=== PATIENT | male | born 1955 | race Caucasian/White ===

== ENCOUNTER 2020-06-04 12:49 | Outpatient (REF) | payer MEDICARE, SELFPAY ==
--- NOTE | 2020-06-04 12:58 | MM_ITS ---
EXAMINATION: BONE DENSITOMETRY CLINICAL INDICATION: Osteoporosis. COMPARISON: Baseline BD dated 06/03/2018. TECHNIQUE: Using a [employer] DXA System (software version: 13.1) manufactured by [employer], dual-energy x-ray absorptiometry was performed of the lumbar spine and left hip. The images are of good technical quality. Summary results are attached. FINDINGS: AP SPINE L1-L4: Current: BMD 0.947 g/cm2, Z-score -2.6, T-score -2.3, osteopenia, 7.0% increase from baseline (<5% change is not significant). Baseline: BMD 0.885 g/cm2. LEFT FEMUR, NECK: Current: BMD 0.794 g/cm2, Z-score -1.5, T-score -2.1, osteopenia. Baseline: BMD 0.751 g/cm2. LEFT FEMUR, TOTAL: Current: BMD 0.822 g/cm2, Z-score -1.9, T-score -1.9, osteopenia, 2.6% increase from baseline (<5% change is not significant). Baseline: BMD 0.801 g/cm2. IDENTIFIED RISK FACTORS: Chronic glucocorticoids. Renal disease. Secondary osteoporosis. Rheumatoid arthritis. HISTORY OF FRACTURE: None listed. MEDICATIONS: Calcium. Vitamin D. IMPRESSION: 1. DIAGNOSIS: Osteopenia based on the lowest T-score value of -2.3 in the lumbar spine applying World Health Organization criteria. 2. 10-YEAR FRACTURE RISK PREDICTION, FRAX: Major osteoporotic fracture (clinical spine, forearm, hip or shoulder) 14.6%. Hip fracture 3.7%. 3. Treatment Recommendations: NOF guidelines recommend consideration for treatment in postmenopausal women and men age 50 and older presenting with the following: -A hip or vertebral (clinical or morphometric) fracture. -T-score less than or equal to -2.5 at the femoral neck or spine after appropriate evaluation to exclude secondary causes. -Low bone mass at the hip or spine and a 10-year fracture probability by FRAX of greater than or equal to 3% for hip fracture or greater than or equal to 20% for major osteoporotic fracture based on the [place] adapted WHO algorithm. 4. Other Recommendations: All treatment decisions require clinical judgment and consideration of individual patient factors, including patient preferences, comorbidities, previous drug use, risk factors not captured in the FRAX model (e.g. frailty, falls, vitamin D deficiency, increased bone turnover, interval significant decline in bone density) and possible under or overestimation of fracture risk by FRAX. Additional medical evaluation for secondary cause of low bone mineral density may be appropriate. FUTURE SCAN RECOMMENDATION: People with diagnosed cases of osteoporosis or at high risk for fracture should have regular bone mineral density tests. For patients eligible for Medicare, routine testing is allowed once every 2 years. The testing frequency can be increased to one year for patients who have rapidly progressing disease, those who are receiving or discontinuing medical therapy to restore bone mass, or have additional risk factors.
== END 2020-06-04 12:50 | disposition home or self-care (01) ==
LOC: HO.MAMMO 12:49
PROVIDERS: PCP Internal Medicine; Visit Provider Student in an Organized Health Care Education/Training Program
DX: M81.0 Age-related osteoporosis without current pathological fracture (principal); E27.49 Other adrenocortical insufficiency; N28.9 Disorder of kidney and ureter, unspecified; M06.9 Rheumatoid arthritis, unspecified
CPT/HCPCS: 77080

== ENCOUNTER 2020-06-27 07:20 | Outpatient (REF) | payer MEDICARE, SELFPAY ==
[2020-06-27 08:06] LABS: MANUAL DIFF FLAG NO
[2020-06-27 08:11] LABS: Basophils Percent Auto 0.7 % (0-2); Eosinophils Absolute Auto 0.4 X10*3/uL (0.0-0.4); Eosinophils Percent Auto 6.4 % (0-4); Hematocrit 44.6 % (42-52); Hemoglobin 14.7 g/dl (14.0-18.0); Imm Gran Abs Auto 0.03 X10*3/uL (0.00-0.03); Imm Gran Pct Auto 0.5 % (0.0-0.4); Lymphocytes Absolute Auto 1.2 X10*3/uL (1.2-4.9); Lymphocytes Percent Auto 19.4 % (20-40); Mean Corpuscular Volume 94.1 fL (80-98); Mean Platelet Volume 9.8 fL (9.4-12.4); Monocytes Absolute Auto 0.5 X10*3/uL (0.1-1.2); Monocytes Percent Auto 8.2 % (2-11); Neutrophils Absolute Auto 3.9 X10*3/uL (2.0-8.3); Neutrophils Percent Auto 64.8 % (45-73); Platelet Count 243 X10*3/uL (160-400); Red Blood Count 4.74 X10*6/uL (4.60-5.80); White Blood Count 5.9 X10*3/uL (4.8-10.8)
[2020-06-27 08:23] LABS: Alanine Aminotransferase 65 U/L (0-40); Albumin Level 3.8 g/dL (3.5-5.0); Alkaline Phosphatase 37 U/L (39-117); Anion Gap 11 (12-20); Aspartate Amino Transferase 51 U/L (5-37); Bilirubin Total 0.6 mg/dL (0.0-1.0); Blood Urea Nitrogen 21 mg/dL (9-16); C Reactive Protein 1.18 mg/dL (< or = 0.50); Calcium 8.9 mg/dL (8.4-10.2); Carbon Dioxide 30 mmol/L (22-29); Chloride 103 mmol/L (96-108); Estimated Glomerular Filt Rate > 60; Glucose Random 120 mg/dL (60-115); Potassium 4.1 mmol/l (3.3-5.1); Sodium 140 mmol/L (135-145); Total Protein 6.9 g/dL (6.5-8.0)
[2020-06-27 09:04] LABS: Erythrocyte Sedimentation Rate 7 MM/HR (0-15)
== END 2020-06-27 07:21 | disposition home or self-care (01) ==
LOC: HO.LAB 07:20
PROVIDERS: PCP Internal Medicine; Visit Provider Student in an Organized Health Care Education/Training Program
DX: M05.9 Rheumatoid arthritis with rheumatoid factor, unspecified (principal); M81.0 Age-related osteoporosis without current pathological fracture; R76.8 Other specified abnormal immunological findings in serum; R80.9 Proteinuria, unspecified
CPT/HCPCS: 36415; 80053; 85025; 85652; 86140

== ENCOUNTER → 2020-07-04 07:43 | Outpatient (BNVA) | payer MEDICARE, SELFPAY | PROVIDERS: PCP Internal Medicine; Referring Provider Internal Medicine; Visit Provider Student in an Organized Health Care Education/Training Program | DX: M05.9 Rheumatoid arthritis with rheumatoid factor, unspecified (principal); M81.0 Age-related osteoporosis without current pathological fracture; R76.8 Other specified abnormal immunological findings in serum; Z79.899 Other long term (current) drug therapy | CPT/HCPCS: 99212 ==

== ENCOUNTER 2020-09-21 08:19 | Outpatient (REF) | payer MEDICARE, SELFPAY ==
[2020-09-21 10:17] LABS: MANUAL DIFF FLAG NO
[2020-09-21 10:36] LABS: Basophils Absolute Auto 0.1 X10*3/uL (0.0-0.2); Basophils Percent Auto 0.7 % (0-2); Eosinophils Absolute Auto 0.5 X10*3/uL (0.0-0.4); Eosinophils Percent Auto 6.4 % (0-4); Hematocrit 46.3 % (42-52); Imm Gran Abs Auto 0.03 X10*3/uL (0.00-0.03); Imm Gran Pct Auto 0.4 % (0.0-0.4); Lymphocytes Absolute Auto 1.5 X10*3/uL (1.2-4.9); Lymphocytes Percent Auto 20.6 % (20-40); Mean Corpuscular HGB Conc 32.4 g/dl (31.0-36.0); Mean Corpuscular Hemoglobin 30.2 pg (27.0-33.0); Mean Corpuscular Volume 93.3 fL (80-98); Mean Platelet Volume 9.9 fL (9.4-12.4); Monocytes Absolute Auto 0.7 X10*3/uL (0.1-1.2); Monocytes Percent Auto 10.1 % (2-11); Neutrophils Absolute Auto 4.4 X10*3/uL (2.0-8.3); Neutrophils Percent Auto 61.8 % (45-73); Platelet Count 266 X10*3/uL (160-400); Red Blood Count 4.96 X10*6/uL (4.60-5.80)
[2020-09-21 10:53] LABS: Alanine Aminotransferase 84 U/L (0-40); Albumin Level 3.9 g/dL (3.5-5.0); Alkaline Phosphatase 40 U/L (39-117); Anion Gap 10 (12-20); Aspartate Amino Transferase 78 U/L (5-37); Bilirubin Total 0.6 mg/dL (0.0-1.0); Blood Urea Nitrogen 17 mg/dL (9-16); C Reactive Protein 2.15 mg/dL (< or = 0.50); Calcium 9.2 mg/dL (8.4-10.2); Carbon Dioxide 29 mmol/L (22-29); Chloride 105 mmol/L (96-108); Estimated Glomerular Filt Rate > 60; Glucose Random 103 mg/dL (60-115); Potassium 4.4 mmol/l (3.3-5.1); Sodium 140 mmol/L (135-145); Total Protein 7.1 g/dL (6.5-8.0)
[2020-09-21 11:10] LABS: Alanine Aminotransferase 85 U/L (0-40); Albumin Level 3.9 g/dL (3.5-5.0); Alkaline Phosphatase 40 U/L (39-117); Anion Gap 13 (12-20); Aspartate Amino Transferase 78 U/L (5-37); Bilirubin Total 0.5 mg/dL (0.0-1.0); Blood Urea Nitrogen 18 mg/dL (9-16); C Reactive Protein 2.23 mg/dL (< or = 0.50); Calcium 9.2 mg/dL (8.4-10.2); Carbon Dioxide 28 mmol/L (22-29); Chloride 105 mmol/L (96-108); Estimated Glomerular Filt Rate > 60; Glucose Random 102 mg/dL (60-115); Potassium 4.3 mmol/l (3.3-5.1); Sodium 142 mmol/L (135-145); Total Protein 7.3 g/dL (6.5-8.0)
[2020-09-21 11:22] LABS: Erythrocyte Sedimentation Rate 17 MM/HR (0-15)
[2020-09-23 23:52] LABS: Transglutaminase Ab IgG 8 U/mL; Transglutaminase IgA 1 U/mL
[2020-09-24 12:27] LABS: Alpha Fetoprotein 3.6 ng/mL (<6.1)
== END 2020-09-21 08:20 | disposition home or self-care (01) ==
LOC: HO.LAB 08:19
PROVIDERS: Absent Provider Student in an Organized Health Care Education/Training Program; PCP Internal Medicine; Visit Provider Nurse Practitioner
DX: M05.9 Rheumatoid arthritis with rheumatoid factor, unspecified (principal); M81.0 Age-related osteoporosis without current pathological fracture; K75.81 Nonalcoholic steatohepatitis (NASH); R19.7 Diarrhea, unspecified; Z88.0 Allergy status to penicillin; Z88.8 Allergy status to other drugs, medicaments and biological substances; Z79.899 Other long term (current) drug therapy
CPT/HCPCS: 36415; 80053; 82105; 83516; 85025; 85652; 86140; 99212

== ENCOUNTER → 2020-10-04 07:47 | Outpatient (BNVA) | payer MEDICARE, SELFPAY | PROVIDERS: PCP Internal Medicine; Referring Provider Internal Medicine; Visit Provider Student in an Organized Health Care Education/Training Program | DX: M05.9 Rheumatoid arthritis with rheumatoid factor, unspecified (principal); M81.0 Age-related osteoporosis without current pathological fracture; R76.8 Other specified abnormal immunological findings in serum; Z79.899 Other long term (current) drug therapy | CPT/HCPCS: 99212 ==

== ENCOUNTER → 2020-10-08 08:49 | Outpatient (BNVA) | payer MEDICARE, SELFPAY | PROVIDERS: PCP Internal Medicine; Visit Provider Nurse Practitioner | DX: Z13.89 Encounter for screening for other disorder (principal) | CPT/HCPCS: Q3014 ==

== ENCOUNTER 2020-10-22 15:46 | Outpatient (REF) | payer MEDICARE, SELFPAY ==
--- NOTE | ~2020-10-22 | XR_ITS ---
EXAMINATION: PRE-MRI CLINICAL INFORMATION: Check for metal in eye pre-MRI COMPARISON: None TECHNIQUE: 3 views of the orbits FINDINGS: No radiopaque soft tissue foreign body about the orbits is seen. Visualized bony structures are normal. There may be membranous soft tissue thickening in the floor of the right maxillary sinus. XR/XR pre mri screening IMPRESSION: No radiopaque foreign body seen about the orbits.
--- NOTE | ~2020-10-22 | MR_ITS ---
EXAMINATION: MR BRAIN WITHOUT AND WITH CONTRAST CLINICAL INFORMATION: 65-year-old with left-sided hearing loss, tinnitus and dizziness. COMPARISON: None TECHNIQUE: Multiplanar, multisequence MRI of the brain was obtained before and after the intravenous administration of 10 mL Gadavist. FINDINGS: IACs: Bilaterally symmetric, no mass lesions or abnormal enhancement. CN VII-VIII complexes normal. AICA Loops:?Type I on right. Membranous Labyrinths: Normal; no abnormal enhancement. CP Angle Cisterns: No mass lesions or abnormal enhancement. Brain Volume: Normal for age. Brain and Meninges: The brain is normal in morphology. There are scattered small non-enhancing T2 hyperintensities in the subcortical and deeper white matter of both cerebral hemispheres, which are nonspecific findings but likely reflect minimal foci of chronic microvascular ischemic white matter changes. DWI imaging demonstrates no restricted diffusion. Specifically, there is no evidence for recent or acute ischemic event. Gradient echo imaging demonstrates no evidence for hemorrhage or hemosiderin staining. Postcontrast whole brain imaging demonstrates no evidence for mass lesion, abnormal enhancement, space-occupying process or mass effect. The cavernous sinuses enhance normally and there is a normal appearance to Meckel's caves. Vessels: Signal voids are noted in the visualized major intracranial vessels. Ventricles and Subarachnoid Spaces: The ventricular system and subarachnoid spaces are within normal limits in appearance. There is no hydrocephalus. Bony Structures: Bony structures appear intact. There is probable retention cyst formation along the floor of the right maxillary sinus with mucosal thickening in both maxillary sinuses and ethmoid complex, with nasal septal deviation to the right. Small retention cyst, right sphenoid sinus. MR/MR head/brain wo/w con IMPRESSION: 1. Normal appearance to the auditory apparatus, with a normal appearance to the IACs and CP angle cisterns. No mass lesions or abnormal enhancement are identified. 2. Scattered probable mild chronic microvascular ischemic white matter changes in both cerebral hemispheres. No mass lesions, abnormal enhancement, space-occupying process or mass effect. 3. Sinonasal findings as discussed above.
== END 2020-10-22 15:47 | disposition home or self-care (01) ==
LOC: HO.MRI 15:46
PROVIDERS: Visit Provider Otolaryngology
DX: H90.3 Sensorineural hearing loss, bilateral (principal); D33.3 Benign neoplasm of cranial nerves
CPT/HCPCS: 70553; A9585

== ENCOUNTER → 2020-10-23 08:54 | Outpatient (BNVA) | payer MEDICARE, SELFPAY | PROVIDERS: PCP Internal Medicine; Visit Provider Nurse Practitioner | CPT/HCPCS: Q3014 ==

== ENCOUNTER 2020-10-31 10:02 | Outpatient (REF) | payer MEDICARE, SELFPAY ==
--- NOTE | ~2020-10-31 | US_ITS ---
EXAMINATION: US ABDOMEN COMPLETE CLINICAL INFORMATION: Nonalcoholic steatohepatitis. COMPARISON: Ultrasound abdomen complete 10/13/2019 and 04/14/2019. TECHNIQUE: Real-time imaging of the abdominal viscera. FINDINGS: PANCREAS: Most of the pancreas is obscured by overlying gas. ABDOMINAL AORTA: The proximal, mid, and distal segments are normal in caliber. INFERIOR VENA CAVA: Visualized portions are normal. LIVER: The liver is normal in size. The liver contour is normal. There is increased liver echogenicity. No focal hepatic lesion. There is no intrahepatic biliary duct dilatation seen. GALLBLADDER: Surgically absent. COMMON BILE DUCT: Normal in caliber measuring 0.5 cm in diameter. RIGHT KIDNEY: There is an echogenic stone in the midpole measuring 1.0 x 0.6 x 0.9 cm. No hydronephrosis or focal parenchymal lesions. The kidney measures 11.7 cm in maximum dimension. LEFT KIDNEY: There is an echogenic stone upper pole measuring 0.8 x 0.5 x 0.7 cm and an echogenic stone lower pole measuring 0.5 x 0.4 x 0.5 cm. No caliectasis or hydronephrosis seen. There is an anechoic cyst in midpole measuring 0.8 x 0.6 x 0.8 cm. No hydronephrosis or renal calculi. The kidney measures 13.6 cm in maximum dimension. SPLEEN: Normal. The spleen measures 12.7 cm in maximum dimension. FREE FLUID: None US/US abdomen complete IMPRESSION: Bilateral echogenic renal calculi without hydronephrosis. There is a midpole left renal cyst measuring 0.8 x 0.6 x 0.8 cm. Mild hepatic steatosis. No focal liver lesions seen. Most of the pancreas is obscured by the overlying gas. The rest of the abdominal ultrasound is unremarkable.
== END 2020-10-31 10:03 | disposition home or self-care (01) ==
LOC: HO.US 10:02
PROVIDERS: Visit Provider Nurse Practitioner
DX: K75.81 Nonalcoholic steatohepatitis (NASH) (principal)
CPT/HCPCS: 76700

== ENCOUNTER 2020-12-31 06:22 | Outpatient (REF) | payer MEDICARE, SELFPAY ==
[2020-12-31 08:08] LABS: MANUAL DIFF FLAG NO
[2020-12-31 08:24] LABS: Basophils Absolute Auto 0.1 X10*3/uL (0.0-0.2); Basophils Percent Auto 0.8 % (0-2); Eosinophils Absolute Auto 0.5 X10*3/uL (0.0-0.4); Hematocrit 46.4 % (42-52); Hemoglobin 15.2 g/dl (14.0-18.0); Imm Gran Abs Auto 0.03 X10*3/uL (0.00-0.03); Imm Gran Pct Auto 0.4 % (0.0-0.4); Lymphocytes Absolute Auto 1.6 X10*3/uL (1.2-4.9); Lymphocytes Percent Auto 21.6 % (20-40); Mean Corpuscular HGB Conc 32.8 g/dl (31.0-36.0); Mean Corpuscular Hemoglobin 30.8 pg (27.0-33.0); Mean Corpuscular Volume 93.9 fL (80-98); Mean Platelet Volume 10.2 fL (9.4-12.4); Monocytes Absolute Auto 0.8 X10*3/uL (0.1-1.2); Monocytes Percent Auto 10.9 % (2-11); Neutrophils Absolute Auto 4.4 X10*3/uL (2.0-8.3); Neutrophils Percent Auto 59.3 % (45-73); Platelet Count 259 X10*3/uL (160-400); Red Blood Count 4.94 X10*6/uL (4.60-5.80); Red Cell Distribution Width 13.7 % (11.0-16.0); White Blood Count 7.3 X10*3/uL (4.8-10.8)
[2020-12-31 08:41] LABS: Alanine Aminotransferase 99 U/L (0-40); Albumin Level 3.8 g/dL (3.5-5.0); Alkaline Phosphatase 44 U/L (39-117); Anion Gap 12 (12-20); Aspartate Amino Transferase 88 U/L (5-37); Bilirubin Total 0.4 mg/dL (0.0-1.0); Blood Urea Nitrogen 14 mg/dL (9-16); C Reactive Protein 1.46 mg/dL (< or = 0.50); Calcium 9.4 mg/dL (8.4-10.2); Carbon Dioxide 29 mmol/L (22-29); Chloride 106 mmol/L (96-108); Estimated Glomerular Filt Rate > 60; Glucose Random 115 mg/dL (60-115); Potassium 4.3 mmol/L (3.3-5.1); Sodium 143 mmol/L (135-145); Total Protein 7.2 g/dL (6.5-8.0)
[2021-01-01 11:37] LABS: Alpha Fetoprotein 3.3 ng/mL (<6.1)
== END 2020-12-31 06:23 | disposition home or self-care (01) ==
LOC: HO.LAB 06:22
PROVIDERS: Nurse Practitioner; PCP Internal Medicine; Visit Provider Student in an Organized Health Care Education/Training Program
DX: K75.81 Nonalcoholic steatohepatitis (NASH) (principal); M05.9 Rheumatoid arthritis with rheumatoid factor, unspecified
CPT/HCPCS: 36415; 80053; 82105; 85025; 86140

== ENCOUNTER → 2021-01-09 09:47 | Outpatient (BNVA) | payer MEDICARE, SELFPAY | PROVIDERS: PCP Internal Medicine; Visit Provider Student in an Organized Health Care Education/Training Program | DX: M05.9 Rheumatoid arthritis with rheumatoid factor, unspecified (principal); M81.0 Age-related osteoporosis without current pathological fracture; R76.8 Other specified abnormal immunological findings in serum | CPT/HCPCS: 20610; 99212 ==

== ENCOUNTER 2021-04-08 06:56 | Outpatient (REF) | payer MEDICARE, SELFPAY ==
[2021-04-08 07:20] LABS: MANUAL DIFF FLAG NO
[2021-04-08 07:28] LABS: Basophils Absolute Auto 0.1 X10*3/uL (0.0-0.2); Basophils Percent Auto 1.2 % (0-2); Eosinophils Absolute Auto 0.6 X10*3/uL (0.0-0.4); Hematocrit 46.3 % (42-52); Hemoglobin 15.2 g/dl (14.0-18.0); Imm Gran Abs Auto 0.04 X10*3/uL (0.00-0.03); Imm Gran Pct Auto 0.6 % (0.0-0.4); Lymphocytes Absolute Auto 1.3 X10*3/uL (1.2-4.9); Lymphocytes Percent Auto 19.4 % (20-40); Mean Corpuscular HGB Conc 32.8 g/dl (31.0-36.0); Mean Corpuscular Hemoglobin 30.6 pg (27.0-33.0); Mean Corpuscular Volume 93.3 fL (80-98); Mean Platelet Volume 9.6 fL (9.4-12.4); Monocytes Absolute Auto 0.8 X10*3/uL (0.1-1.2); Neutrophils Absolute Auto 4.1 X10*3/uL (2.0-8.3); Neutrophils Percent Auto 59.8 % (45-73); Platelet Count 253 X10*3/uL (160-400); Red Blood Count 4.96 X10*6/uL (4.60-5.80); Red Cell Distribution Width 12.8 % (11.0-16.0); White Blood Count 6.8 X10*3/uL (4.8-10.8)
[2021-04-08 07:48] LABS: Alanine Aminotransferase 88 U/L (0-40); Albumin Level 3.8 g/dL (3.5-5.0); Alkaline Phosphatase 45 U/L (39-117); Anion Gap 13 (12-20); Aspartate Amino Transferase 68 U/L (5-37); Bilirubin Total 0.6 mg/dL (0.0-1.0); Blood Urea Nitrogen 15 mg/dL (9-16); C Reactive Protein 2.24 mg/dL (< or = 0.50); Calcium 9.2 mg/dL (8.4-10.2); Carbon Dioxide 29 mmol/L (22-29); Chloride 107 mmol/L (96-108); Estimated Glomerular Filt Rate > 60; Glucose Random 126 mg/dL (60-115); Potassium 3.9 mmol/L (3.3-5.1); Sodium 145 mmol/L (135-145); Total Protein 7.2 g/dL (6.5-8.0)
[2021-04-08 08:13] LABS: Erythrocyte Sedimentation Rate 16 MM/HR (0-15)
== END 2021-04-08 06:57 | disposition home or self-care (01) ==
LOC: HO.LAB 06:56
PROVIDERS: Absent Provider Nurse Practitioner; PCP Internal Medicine; Visit Provider Student in an Organized Health Care Education/Training Program
DX: M05.9 Rheumatoid arthritis with rheumatoid factor, unspecified (principal); R19.7 Diarrhea, unspecified; K75.81 Nonalcoholic steatohepatitis (NASH)
CPT/HCPCS: 36415; 80053; 85025; 85652; 86140

== ENCOUNTER → 2021-04-18 07:43 | Outpatient (BNVA) | payer MEDICARE, SELFPAY | PROVIDERS: PCP Internal Medicine; Visit Provider Student in an Organized Health Care Education/Training Program | DX: M05.9 Rheumatoid arthritis with rheumatoid factor, unspecified (principal); M81.0 Age-related osteoporosis without current pathological fracture; R76.8 Other specified abnormal immunological findings in serum; Z88.0 Allergy status to penicillin; Z88.8 Allergy status to other drugs, medicaments and biological substances; Z79.82 Long term (current) use of aspirin; Z79.52 Long term (current) use of systemic steroids; Z79.899 Other long term (current) drug therapy | CPT/HCPCS: 20610; 99212 ==

== ENCOUNTER → 2021-04-23 09:08 | Outpatient (BNVA) | payer MEDICARE, SELFPAY | PROVIDERS: PCP Internal Medicine; Visit Provider Nurse Practitioner | DX: Z13.89 Encounter for screening for other disorder (principal) | CPT/HCPCS: Q3014 ==

== ENCOUNTER 2021-11-07 11:48 | Outpatient (REF) | payer MEDICARE, SELFPAY ==
[2021-11-07 12:36] LABS: MANUAL DIFF FLAG NO
[2021-11-07 13:30] LABS: Basophils Absolute Auto 0.1 X10*3/uL (0.0-0.2); Basophils Percent Auto 0.6 % (0-2); Eosinophils Absolute Auto 0.4 X10*3/uL (0.0-0.4); Eosinophils Percent Auto 5.3 % (0-4); Hematocrit 45.1 % (42.0-52.0); Hemoglobin 14.6 g/dl (14.0-18.0); Imm Gran Abs Auto 0.03 X10*3/uL (0.00-0.03); Imm Gran Pct Auto 0.4 % (0.0-0.4); Lymphocytes Absolute Auto 1.4 X10*3/uL (1.2-4.9); Lymphocytes Percent Auto 17.4 % (20-40); Mean Corpuscular HGB Conc 32.4 g/dl (31.0-36.0); Mean Corpuscular Hemoglobin 30.5 pg (27.0-33.0); Mean Corpuscular Volume 94.2 fL (80.0-98.0); Mean Platelet Volume 9.7 fL (9.4-12.4); Monocytes Absolute Auto 0.7 X10*3/uL (0.1-1.2); Monocytes Percent Auto 8.2 % (2-11); Neutrophils Absolute Auto 5.5 x10*3/uL (2.0-8.3); Neutrophils Percent Auto 68.1 % (45-73); Platelet Count 255 X10*3/uL (160-400); Red Blood Count 4.79 X10*6/uL (4.60-5.80); Red Cell Distribution Width 13.6 % (11.0-16.0)
[2021-11-07 13:52] LABS: Alanine Aminotransferase 89 U/L (0-40); Albumin Level 3.8 g/dL (3.5-5.0); Alkaline Phosphatase 47 U/L (39-117); Anion Gap 11 (12-20); Aspartate Amino Transferase 80 U/L (5-37); Bilirubin Direct 0.3 mg/dL (0.0-0.5); Bilirubin Total 0.8 mg/dL (0.0-1.0); Blood Urea Nitrogen 22 mg/dL (9-16); Calcium 9.7 mg/dL (8.4-10.2); Carbon Dioxide 30 mmol/L (22-29); Chloride 104 mmol/L (96-108); Estimated Glomerular Filt Rate > 60; Glucose Random 86 mg/dL (60-115); Potassium 4.4 mmol/L (3.3-5.1); Sodium 141 mmol/L (135-145); Total Protein 7.3 g/dL (6.5-8.0)
[2021-11-07 15:02] LABS: Erythrocyte Sedimentation Rate 14 MM/HR (0-15)
[2021-11-11 13:21] LABS: Alpha Fetoprotein 3.3 ng/mL (<6.1)
== END 2021-11-07 11:49 | disposition home or self-care (01) ==
LOC: HO.LAB 11:48
PROVIDERS: Student in an Organized Health Care Education/Training Program; PCP Internal Medicine; Referring Provider Internal Medicine; Visit Provider Nurse Practitioner
DX: M05.9 Rheumatoid arthritis with rheumatoid factor, unspecified (principal); K75.81 Nonalcoholic steatohepatitis (NASH); K90.0 Celiac disease; M81.0 Age-related osteoporosis without current pathological fracture; Z90.49 Acquired absence of other specified parts of digestive tract; Z88.0 Allergy status to penicillin; Z88.8 Allergy status to other drugs, medicaments and biological substances
CPT/HCPCS: 36415; 80053; 82105; 82248; 85025; 85652; 86140; 99212

== ENCOUNTER 2022-05-22 08:20 | Outpatient (REF) | payer MEDICARE, SELFPAY ==
[2022-05-22 09:11] LABS: Alanine Aminotransferase 66 U/L (0-40); Albumin Level 3.9 g/dL (3.5-5.0); Alkaline Phosphatase 37 U/L (39-117); Aspartate Amino Transferase 55 U/L (5-37); Bilirubin Direct 0.3 mg/dL (0.0-0.5); Bilirubin Total 0.8 mg/dL (0.0-1.0); Total Protein 7.4 g/dL (6.5-8.0)
[2022-05-26 13:53] LABS: Alpha Fetoprotein 2.5 ng/mL (<6.1)
== END 2022-05-22 08:21 | disposition home or self-care (01) ==
LOC: HO.LAB 08:20
PROVIDERS: PCP Internal Medicine; Visit Provider Nurse Practitioner
DX: K90.0 Celiac disease (principal); K75.81 Nonalcoholic steatohepatitis (NASH)
CPT/HCPCS: 36415; 80076; 82105; 99212

== ENCOUNTER 2022-07-09 07:43 | Outpatient (REF) | payer MEDICARE, SELFPAY ==
--- NOTE | ~2022-07-09 | US_ITS ---
EXAMINATION: US ABDOMEN LIMITED CLINICAL INFORMATION: Nonalcoholic steatohepatitis. COMPARISON: Ultrasound abdomen complete 10/31/2020 and 10/13/2019. TECHNIQUE: Real-time imaging of the right upper quadrant abdominal viscera. FINDINGS: PANCREAS: Normal. LIVER: The liver is normal in size. The liver contour is normal. There is a diffuse heterogeneous liver. No focal hepatic lesion. There is no intrahepatic biliary duct dilatation seen. GALLBLADDER: Surgically absent. COMMON BILE DUCT: Normal in caliber measuring 0.3 cm in diameter. RIGHT KIDNEY: There is an echogenic stone in the mid pole measuring 1.6 x 1.8 x 1.0 cm. No hydronephrosis. The kidney measures 12.5 cm in maximum dimension. There is a hypoechoic area along the mid pole cortex measuring 1.2 x 0.7 x 1.4 cm. FREE FLUID: None. US/US abdomen limited IMPRESSION: 1. Heterogeneous liver without focal lesion. No change from the previous study. 2. Nonobstructive echogenic stone mid pole right kidney. 3. Hypoechoic area mid pole cortex right kidney. Question mass versus lobulation. 4. The gallbladder has been surgically removed.
== END 2022-07-09 07:44 | disposition home or self-care (01) ==
LOC: HO.US 07:43
PROVIDERS: Visit Provider Nurse Practitioner
DX: K75.81 Nonalcoholic steatohepatitis (NASH) (principal)
CPT/HCPCS: 76705

== ENCOUNTER 2022-11-19 07:55 | Outpatient (REF) | payer MEDICARE, SELFPAY ==
[2022-11-19 08:42] LABS: MANUAL DIFF FLAG NO
[2022-11-19 09:35] LABS: Basophils Absolute Auto 0.1 X10*3/uL (0.0-0.2); Basophils Percent Auto 0.7 % (0-2); Eosinophils Absolute Auto 0.4 X10*3/uL (0.0-0.4); Hematocrit 46.5 % (42.0-52.0); Hemoglobin 15.2 g/dl (14.0-18.0); Imm Gran Abs Auto 0.05 X10*3/uL (0.00-0.03); Imm Gran Pct Auto 0.7 % (0.0-0.4); Lymphocytes Absolute Auto 1.2 X10*3/uL (1.2-4.9); Lymphocytes Percent Auto 16.7 % (20-40); Mean Corpuscular HGB Conc 32.7 g/dl (31.0-36.0); Mean Corpuscular Hemoglobin 29.7 pg (27.0-33.0); Mean Corpuscular Volume 90.8 fL (80.0-98.0); Mean Platelet Volume 9.8 fL (9.4-12.4); Monocytes Absolute Auto 0.6 X10*3/uL (0.1-1.2); Neutrophils Absolute Auto 4.8 x10*3/uL (2.0-8.3); Neutrophils Percent Auto 66.9 % (45-73); Platelet Count 274 X10*3/uL (160-400); Red Blood Count 5.12 X10*6/uL (4.60-5.80); Red Cell Distribution Width 13.5 % (11.0-16.0); White Blood Count 7.1 X10*3/uL (4.8-10.8)
[2022-11-19 09:53] LABS: Alanine Aminotransferase 86 U/L (0-40); Albumin Level 3.7 g/dL (3.5-5.0); Alkaline Phosphatase 41 U/L (39-117); Anion Gap 13 (12-20); Aspartate Amino Transferase 67 U/L (5-37); Bilirubin Total 0.7 mg/dL (0.0-1.0); Blood Urea Nitrogen 17 mg/dL (9-16); Calcium 9.5 mg/dL (8.4-10.2); Carbon Dioxide 29 mmol/L (22-29); Chloride 105 mmol/L (96-108); Estimated Glomerular Filt Rate > 60; Glucose Random 153 mg/dL (60-115); Potassium 4.4 mmol/L (3.3-5.1); Sodium 143 mmol/L (135-145); Total Protein 6.9 g/dL (6.5-8.0)
[2022-11-21 13:33] LABS: Alpha Fetoprotein 3.3 ng/mL (<6.1)
== END 2022-11-19 07:56 | disposition home or self-care (01) ==
LOC: HO.LAB 07:55
PROVIDERS: PCP Internal Medicine; Referring Provider Internal Medicine; Visit Provider Nurse Practitioner
DX: K75.81 Nonalcoholic steatohepatitis (NASH) (principal); R19.7 Diarrhea, unspecified; K90.0 Celiac disease; Z79.899 Other long term (current) drug therapy
CPT/HCPCS: 36415; 80053; 82105; 85025; 99212

== ENCOUNTER 2022-12-10 08:15 | Outpatient (REF) | payer MEDICARE, SELFPAY ==
--- NOTE | ~2022-12-10 | US_ITS ---
EXAMINATION: US COMPLETE ABDOMEN WITH LIVER ELASTOGRAPHY CLINICAL INFORMATION: MAKI COMPARISON: Previous ultrasounds most recent July 2022 TECHNIQUE: Real-time imaging of the abdominal viscera. Noninvasive ultrasound liver fibrosis assessment is performed using [employer] ElastPQ point quantification shear wave elastography (2D-SWE) with a C5-2 MHz transducer. Multiple elastography samples are obtained. FINDINGS: PANCREAS: Not well visualized due to bowel gas. ABDOMINAL AORTA: The middle and distal aortic segments are normal in caliber. The proximal abdominal aorta is not well visualized. INFERIOR VENA CAVA: Not well visualized. LIVER: Liver echotexture is increased. Liver is normal in contour. Liver is upper normal in size. No focal lesion or intrahepatic biliary duct dilatation. The right lobe measures 18 cm in length. The left lobe measures 11 cm in length. Portal flow is normal/hepatopedal Shear wave liver elastography median stiffness is 2.2 m/s (reference: normal median stiffness is 1.3 m/s or less). IQR/median stiffness to assess sampling precision is 0.07 (reference: good quality data set is IQR/median stiffness of 0.15 or less). GALLBLADDER: Surgically removed COMMON BILE DUCT: Normal in caliber measuring 0.5 cm in diameter. RIGHT KIDNEY: There is a 1.1 x 0.5 x 0.7 cm stone in the midpole. There is a heterogeneous area in the mid to lower pole measuring 1.7 cm questionable for a mass. This is increased from 1.3 cm on prior exam. There is a 7 x 4 x 9 mm cyst in the upper pole. The kidney measures 12 cm in maximum dimension. LEFT KIDNEY: Normal. No hydronephrosis. No renal calculi or focal parenchymal lesions. The kidney measures 13.5 cm in maximum dimension. SPLEEN: Normal. The spleen measures 12.4 cm in maximum dimension. FREE FLUID: None. US/US abdomen comp w elastography IMPRESSION: 1. Impression: Echogenic liver. Right renal stone. Question right renal mass. Follow-up CT or MR of the kidneys recommended. Limited visualization of the pancreas, aorta and IVC. 2. Liver elastography: Adequate liver sampling. Increased liver stiffness suggestive of chronic liver disease. Findings will be communicated by the [place] work flow studio camera operator. REFERENCE: Society of Radiologists in Ultrasound Liver Stiffness Thresholds (2020): LIVER STIFFNESS THRESHOLDS: *Liver Stiffness equal or less than 1.3 m/s: High probability of being normal. *Liver Stiffness less than 1.7 m/s: In the absence of other known clinical signs, rules out compensated advanced chronic liver disease. *Liver Stiffness 1.7-2.1 m/s: Suggestive of compensated advanced chronic liver disease but need further test for confirmation. *Liver Stiffness over 2.1 m/s: Rules in compensated advanced chronic liver disease. *Liver Stiffness over 2.4 m/s: Suggestive of clinically significant portal hypertension. QUALITY OF DATA SET: *IQR/Median value equal or less than 0.15 implies a quality data set. *IQR/Median value over 0.15 implies a poor quality data set. SIGNIFICANT CHANGE FROM PRIOR EXAM: Significant change if liver stiffness measurement is 10% or greater from prior exam. OTHER CONSIDERATIONS: The stage of liver fibrosis may be overestimated in the setting of acute hepatitis, liver inflammation, elevated liver function tests, hepatic vascular congestion, obstructive cholestasis, non-fasting state, and infiltrative diseases such as amyloidosis and lymphoma. In some patients with NAFLD, the liver stiffness thresholds for compensated advanced chronic liver disease may be lower. In causes other than viral hepatitis and NAFLD, liver stiffness thresholds are not well established.
== END 2022-12-10 08:16 | disposition home or self-care (01) ==
LOC: HO.US 08:15
PROVIDERS: PCP Internal Medicine; Visit Provider Nurse Practitioner
DX: K75.81 Nonalcoholic steatohepatitis (NASH) (principal)
CPT/HCPCS: 76705; 76981

== ENCOUNTER 2023-05-13 07:39 | Outpatient (AMB) | payer MEDICARE, SELFPAY ==
--- NOTE | 2023-05-13 07:49 | A.OFFVIS_ITS ---
Intake Intake Visit Reasons: 6 month follow up Intake Note: Patient follow up Celiac disease, lab and US results. Patient denies any GI issues. 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 Accompanied by: Self / Same As Patient Allergies etanercept [Enbrel] Allergy (Severe, Verified 05/13/23 07:49) pneumonia/sepsis hydroxychloroquine [Plaquenil] Allergy (Intermediate, Verified 05/13/23 07:49) rash methotrexate Allergy (Intermediate, Verified 05/13/23 07:49) GI UPSET Penicillins [PENICILLINS] Allergy (Intermediate, Verified 05/13/23 07:49) ARM SWELLING/REDNESS HPI 6 month follow up HPI Details Assessment & Plan (1) MAKI (nonalcoholic steatohepatitis): Comment: METAVIR F0-F1, 01/2019 AFP 2.5 last ultrasound 10/2018 AST/ALT 57/71, anti mitochondrial antibodies are negative, GABRIELLA is positive but he has RA, hepatitis a B and C are negative, ferritin 03/2019 at 01:25 in normal CURRENT LABS Laboratory Tests 12/31/20 06:30 Alpha Fetoprotein 3.3 04/08/21 Plt Count 253 Total Bilirubin 0.6 AST 68 H ALT 88 H Alkaline Phosphatase 45 ULTRASOUND OF THE ABDOMEN 10/31/20 IMPRESSION: Bilateral echogenic renal calculi without hydronephrosis. ? There is a midpole left renal cyst measuring 0.8 x 0.6 x 0.8 cm. ? Mild hepatic steatosis. No focal liver lesions seen. ? Most of the pancreas is obscured by the overlying gas. ? The rest of the abdominal ultrasound is unremarkable. Code(s): K75.81 - Nonalcoholic steatohepatitis (MAKI) Plan: He continues to do well. He lost 10 lbs but then started gaining some back. We reviewed the ultrasound the labs and basically his fatty liver peers to be stable and not escalating from his established baseline even though he continues to have mild transaminitis. He is agreeable to repeating his labs and his ultr asound at continued 6 month intervals and understands that weight control diabetes control and avoiding alcohol of the 3 most important factors in ensuring that he has continued liver health. Needs refill of carafate, uses it prn - too expensive under insurance, will be using [facility] - I give him a card. He tends to use this 1 gluten either accidentally or by dietary indiscretions makes into his diet. ROV 6 mos. (2) Diarrhea: Code(s): R19.7 - Diarrhea, unspecified (3) Celiac disease: Comment: He tells me that he went on a gluten free diet and his stomach aches and diarrhea have mostly resolved. He is happy with this, I had given him Celiac Disease. It was not a clear-cut diagnosis because of his comorbid rheumatoid arthritis which may have been elevating many of the inflammatory factors, but it was certainly worth trying. Given his clinical response to avoiding gluten I think we have a sound diagnosis of celiac disease. Code(s): K90.0 - Celiac disease Orders: Orders Alpha Fetoprotein Today K75.81 - Nonalcoho lic steatohepatiti s (MAKI) Comprehensive Met. Panel Today K75.81 - Nonalcoho lic steatohepatiti s (MAKI) US abdomen comp w elastography Today K75.81 - Nonalcoho lic steatohepatiti s (MAKI) Complete Blood Cou nt Auto Diff Today K75.81 - Nonalcoho lic steatohepatiti s (MAIK) Medications: New sucralfate (Carafa te) 2 grams (2 x 1 gra m) PO DAILY 60 tab s 11RF R19.7 - Diarrhea, unspecified LABS: 11/19/22-[address]: Felix chu,Sammy Carcamo MD ORDERED: CBC Auto Diff Test Result Flag Refere nce Si te WBC 7.1 4.8-10. 8 X10*3/uL RBC 5.12 4.60-5.80 X10*6/uL H GB 15 .2 14.0-18.0 g /dl HCT 46.5 42.0-52.0 % MCV 90.8 80.0-98.0 fL MCH 29.7 27.0-33.0 pg MCHC 32.7 3 1.0-36.0 g/dl RDW 13.5 11. 0-16.0 % PLT 274 160-4 00 X10*3/uL MPV 9.8 9.4-12. 4 fL Neut Pct Auto 66.9 45-73 % I mGran Pct Auto 0. 7 H 0.0-0.4 % Lym p Pct Auto 16.7 L 20-40 % Cocke Pct Auto 9.0 2-11 % Eos Pct Auto 6.0 H 0-4 % Baso Pct Auto 0.7 0 -2 % NRBC Pct Au to 0.0 0.0 -0.2 /100WBC ANC Neut Abs # 4.8 2.0-8 .3 x10*3/uL ImGran Abs Auto 0.05 H 0.00-0. 03 X10*3/uL Lymph Abs Auto 1.2 1.2-4.9 X 10*3/uL M maryse Abs Auto 0. 6 0.1-1.2 X10 *3/uL Eos Abs Auto 0.4 0.0-0.4 X10*3 /uL Baso Abs Auto 0.1 0.0-0.2 X10*3/u L NRBC Ab s Auto 0.000 0.0-0.012 X10*3/u L 11/19/[address]: Felix chu,Sammy Carcamo MD ORDERED: CMP Test Result Flag Refere nce Si te Sodium 143 135-145 mmol/L Potassium 4.4 3.3-5.1 m mol/L C L 10 5 96-108 mmol /L CO2 29 22-29 mmol/L Gap 13 12-20 BUN 17 H 9-16 mg/dL Creat 0.78 0 .5-1.4 mg/dL EGFR > 60 NOTE: F or -Debra n individuals, mul tiply the result by 1. 210. Chronic Kidney D isease: Estimated GFR < 60 mL/min/1 .73m2 Sever e Kidney Disease: Estimated GFR < 1 5 mL/min/1.73m2 Glucose, Random 1 53 H 60-115 mg/ dL CA 9.5 8.4-10.2 mg/ dL Tota l Bili 0.7 0.0-1.0 mg/dL AST (G OT) 67 H 5-37 U/L ALT (GPT ) 86 H 0-40 U/L Protein, T otal 6.9 6. 5-8.0 g/dL Alb 3.7 3.5- 5.0 g/dL Alk Phos 41 39-117 U/L 11/19/22-[address] [facility] [address]: Sammy White MD ORDERED: Alpha Feto Test Result Flag Refere nce Si te AFPTM 3.3 ULTRASOUND OF THE ABDOMEN WITH ELASTOGRAPHY 12/16/22 (F2-F3) FINDINGS: PANCREAS: Not well visualized due to bowel gas. ABDOMINAL AORTA: The middle and distal aortic segments are normal in caliber. The proximal abdominal aorta is not well visualized. INFERIOR VENA CAVA: Not well visualized. LIVER: Liver echotexture is increased. Liver is normal in contour. Liver is upper normal in size. No focal lesion or intrahepatic biliary duct dilatation. The right lobe measures 18 cm in length. The left lobe measures 11 cm in length. Portal flow is normal/hepatopedal Shear wave liver elastography median stiffness is 2.2 m/s (reference: normal median stiffness is 1.3 m/s or less). IQR/median stiffness to assess sampling precision is 0.07 (reference: good quality data set is IQR/median stiffness of 0.15 or less). GALLBLADDER: Surgically removed COMMON BILE DUCT: Normal in caliber measuring 0.5 cm in diameter. RIGHT KIDNEY: There is a 1.1 x 0.5 x 0.7 cm stone in the midpole. There is a heterogeneous area in the mid to lower pole measuring 1.7 cm questionable for a mass. This is increased from 1.3 cm on prior exam. There is a 7 x 4 x 9 mm cyst in the upper pole. The kidney measures 12 cm in maximum dimension. LEFT KIDNEY: Normal. No hydronephrosis. No renal calculi or focal parenchymal lesions. The kidney measures 13.5 cm in maximum dimension. SPLEEN: Normal. The spleen measures 12.4 cm in maximum dimension. FREE FLUID: None. US/US abdomen comp w elastography IMPRESSION: 1. Impression: Echogenic liver. Right re nal stone. Question right renal mass. Follow-up CT or MR of the kidneys recommended. Limited visualization of the pancreas, aorta and IVC. 2. Liver elastography: Adequate liver s ampling. Increased liver stiffness suggestive of chronic liver disease. TODAY'S VISIT HE is no longer taking the sucralfate, he did find that it was effecting his BP meds because he was not out the dosing schedule. But he is not having diarrhea except with dietary indiscretions. He continues to follow a celiac diet most of the time. Back is bad! Will be getting facet injection soon. He thinks this is why his BP is high. He has gained wt, and this shows in his liver enzymes. I think we this out to him so that he can be motivated to lose weight again as he has only been up in down 10 lb but it does show in his transaminases. Again it is important for him to take care of his liver to given the best ongoing quality of life in to protect it. He does not drink alcohol, and so far is not diabetic but he is markedly obese with central adiposity. We go over all of the labs and the ultrasound and I let him know that there is some damage to his liver which fall somewhere in the F2 area looking at his past med of years scoring and his current elastography. ROV 6 mos. PFSH Medical History GABRIELLA positive Osteoporosis Seropositive rheumatoid arthritis Surgical History History of orchiectomy Hx of cholecystectomy Hx of colonoscopy History of surgery on wrist Hx of appendectomy Hx of eye surgery Family History Brother Prostate cancer Mother Stomach cancer Father CAD (coronary artery disease) Social History Household Members: Spouse Alcohol intake: never Cigarette Packs Per Day: 1.5 Years Smoked: 25 Current occupational status: retired Review of Systems Const Denies fatigue, Denies fever(s), Denies night sweats, Denies poor appetite and Denies weight loss Eyes Details: glasses Reports requires corrective lenses ENT Reports Normal hearing present, Denies dental pain, Denies dysphagia, Denies hearing loss, Denies mouth pain, Denies odynophagia, Denies throat swelling, Denies tongue swelling and Reports other (Dentition adequate) GI Denies abdominal pain, Denies melena, Denies bloating, Denies hematochezia, Denies constipation, Denies GI cramping, Denies dysphagia, Denies excessive flatus, Denies early satiety, Denies heartburn, Denies diarrhea, Denies nausea, Denies odynophagia, Denies vomiting and Denies hematemesis Skin/Breast Denies pruritus, Denies lesions, Denies rash and Denies jaundice Neuro Reports Normal hearing present and Denies Abnormal speech present Endo Denies fatigue Aller/Immun Denies throat swelling and Denies tongue swelling Physical Exam Const General: cooperative, no acute distress, well developed and well groomed Nutritional Appearance: well nourished and obese centrally obese Orientation/consciousness: oriented to person, oriented to place and oriented to time Limitations: No language barrier HEENT Head: Yes normocephalic and Yes atraumatic Eyes General: appearance normal, both eyes and all related structures Pupils: Equal, round and reactive pupils present Neck Neck: Yes normal visual inspection and Yes no lymphadenopathy Thyroid: Thyroid normal Resp Effort & Inspection: normal respiratory effort and able to speak in complete sentences Auscultation: clear to auscultation bilaterally Cardio Rate: regular rate Rhythm: regular rhythm Heart sounds: Normal, physiologic split S2 sound present Peripheral pulses: radial pulses present and posterior tibial pulses present GI Inspection: No distended, No Abdominal panniculus present and Yes obesity Palpation (GI): Soft to palpation, nontender, no guarding, not rigid and No hepatosplenomegaly present Percussion: Yes normal to percussion Auscultation: normal bowel sounds Rectal Exam - Male: Yes deferred Skin General skin exam: no rashes or lesions noted, turgor normal, skin not dry, no jaundice, No spider nevi and no striae Rashes: no rashes Nails: normal Neuro General: oriented to person, oriented to place and oriented to time Cranial nerves: Yes Equal, round and reactive pupils present and Yes Normal hearing present Speech: No Abnormal speech present Extrem General: Yes normal to inspection, No clubbing, No cyanosis and No edema Psych Appearance: grossly normal and well kempt Mental Status: mental status grossly normal Speech and movement: Normal speech and movement present Affect: normal affect Attitude: cooperative Thought process: Normal thought process present and not confabulating Thought content: Normal thought content present Insight: Fair insight present (Psych) Judgement: Fair judgement present (Psych) Assessment & Plan Assessment & Plan (1) MAKI (nonalcoholic steatohepatitis): Comment: METAVIR F0-F1, 01/2019 AFP 2.5 last ultrasound 10/2018 AST/ALT 57/71, anti mitochondrial antibodies are negative, GABRIELLA is positive but he has RF, hepatitis a B and C are negative, ferritin 03/2019 at 01:25 in normal ULTRASOUND OF THE ABDOMEN WITH ELASTOGRAPHY 12/16/22 (F2-F3) CURRENT LABS Laboratory Tests 11/19/22 Total Bili 0.7 0.0-1.0 mg/dL AST (GOT) 67 H 5-37 U/L ALT (GPT) 86 H 0-40 U/L Protein, Total 6.9 6.5-8.0 g/dL Alb 3.7 3.5-5.0 g/dL Alk Phos 41 39-117 U/L AFPTM 3.3 ULTRASOUND OF THE ABDOMEN with elastography 12/16/22 (F2-F3) IMPRESSION: 1. Impression: Echogenic liver. Right renal stone. Question right renal mass. Follow-up CT or MR of the kidneys recommended. Limited visualization of the pancreas, aorta and IVC. 2. Liver elastography: Adequate liver sampling. Increased liver stiffness suggestive of chronic liver disease. Code(s): K75.81 - Nonalcoholic steatohepatitis (MAKI) Plan: HE is no longer taking the sucralfate, he did find that it was effecting his BP meds because he was not out the dosing schedule. But he is not having diarrhea except with dietary indiscretions. He continues to follow a celiac diet most of the time. Back is bad! Will be getting facet injection soon. He thinks this is why his BP is high. He has gained wt, and this shows in his liver enzymes. I think we this out to him so that he can be motivated to lose weight again as he has only been up in down 10 lb but it does show in his transaminases. Again it is important for him to take care of his liver to given the best ongoing quality of life in to protect it. He does not drink alcohol, and so far is not diabetic but he is markedly obese with central adiposity. We go over all of the labs and the ultrasound and I let him know that there is some damage to his liver which fall somewhere in the F2 area looking at his past med of years scoring and his current elastography. ROV 6 mos. (2) Celiac disease: Comment: He tells me that he went on a gluten free diet and his stomach aches and diarrhea have mostly resolved. He is happy with this, I had given him Celiac Disease. It was not a clear-cut diagnosis because of his comorbid rheumatoid arthritis which may have been elevating many of the inflammatory factors, but it was certainly worth trying. Given his clinical response to avoiding gluten I think we have a sound diagnosis of celiac disease. Code(s): K90.0 - Celiac disease Coding Level of Care Code Est Pt Level 3 (24262) Diagnoses MAKI (nonalcoholic steatohepatitis) K75.81 Celiac disease K90.0
== END 2023-05-13 08:20 | disposition home or self-care (01) ==
PROVIDERS: PCP Internal Medicine; Visit Provider Nurse Practitioner
DX: K75.81 Nonalcoholic steatohepatitis (NASH) (principal); K90.0 Celiac disease
CPT/HCPCS: 99213

== ENCOUNTER → 2023-05-13 07:39 | Outpatient (BNVA) | payer MEDICARE, SELFPAY | PROVIDERS: PCP Internal Medicine; Visit Provider Nurse Practitioner | DX: K75.81 Nonalcoholic steatohepatitis (NASH) (principal); R19.7 Diarrhea, unspecified; K90.0 Celiac disease | CPT/HCPCS: 99212 ==